=== PATIENT | female | born 1985 | race Caucasian/White ===

== ENCOUNTER 2021-09-29 17:55 | Observation (INO) ==
[2021-09-29] MEDS ORDERED: Isovue-370 500 ML BOTTLE IVP ONE (19:16)
[2021-09-29] MEDS ORDERED: 0.9 % Sodium Chloride 1,000 ML IV ONE ×2 (19:17→23:45)
[2021-09-29] MEDS ORDERED: Ketorolac 30 MG/ML VIAL IVP ONE (19:17)
[2021-09-29 19:41] LABS: Basophils # 0.1 K/mcL (0.0-0.2); Basophils % 0.5 %; Eosinophils # 0.1 K/mcL (0.0-0.6); Eosinophils % 0.3 %; Immature Granulocytes % 0.5 % (0-4); Lymphocytes # 2.7 K/mcL (0.6-4.6); Lymphocytes % 18.9 %; Mean Corpuscular HGB Conc 33.3 g/dL (31.6-35.5); Mean Corpuscular Hemoglobin 27.3 pg (28.0-33.3); Mean Corpuscular Volume 81.9 fL (83.0-100.0); Mean Platelet Volume 11.3 fL (9.4-12.4); Monocytes # 0.6 K/mcL (0.0-1.3); Monocytes % 3.8 %; Platelet Count 273 K/mcL (140-400); Red Blood Count 5.13 M/mcL (3.82-4.97); Red Cell Distribution Width 14.3 % (11.5-14.5); White Blood Count 14.4 K/mcL (4.3-11.1)
[2021-09-29 19:49] LABS: Alanine Aminotransferase 7 Units/L (7-52); Albumin/Globulin Ratio 1.3 (1.1-2.2); Alkaline Phosphatase 100 Units/L (34-104); Amylase 52 Units/L (29-103); Aspartate Amino Transferase 12 Units/L (13-39); BUN/Creatinine Ratio 12 (6-26); Bilirubin,Total 0.3 mg/dL (0.3-1.0); Blood Urea Nitrogen 8 mg/dL (6-20); Calcium 9.1 mg/dL (8.6-10.3); Carbon Dioxide 18 mEq/L (23-29); Chloride 107 mEq/L (98-107); Globulin 3.1 g/dL (2.4-3.5); Glucose 116 mg/dL (70-105); Lipase 22 Units/L (11-82); Osmolality,Calculated 279 (280-300); Potassium 3.6 mEq/L (3.5-5.1); Sodium 135 mEq/L (136-145); Total Protein 7.1 g/dL (6.4-8.9); eGFR For African Americans > 60 (> 60); eGFR For Non-African Americans > 60 (> 60)
[2021-09-29] MEDS ORDERED: Ondansetron 4 MG/2 ML VIAL IVP ONE (20:03)
[2021-09-29] MEDS ORDERED: *HR* FentaNYL (PF) 100 MCG/2 ML VIAL IVP ONE ×4 (20:03→23:13)
[2021-09-29 20:13] LABS: Bacteria,Urine Few per hpf (None-Few); Bilirubin,Urine Negative (Negative); Blood,Urine Negative (Negative); Clarity,Urine Clear (Clear); Color,Urine Colorless (Yellow); Glucose,Urine (UA) Normal (Normal); Ketones,Urine Negative (Negative); Leukocyte Esterase,Urine Small (Negative); Mucus,Urine Few per lpf (None-Few); Nitrite,Urine Negative (Negative); Protein,Urine Negative (Neg-Trace); RBC,Urine 0-3 per hpf (0-3); Specific Gravity,Urine 1.023 (1.010-1.025); Squamous Epithelial Cell,Urine Moderate per hpf (None-Few); Urobilinogen,Urine Normal (Normal); WBC,Urine 0-3 per hpf (0-3)
[2021-09-30] MEDS ORDERED: D5% in Lactated Ringers 1,000 ML IVC SCH ×2 (02:15→02:30)
[2021-09-30] MEDS: Topiramate 100 MG TABLET PO SCH ×2 (03:46→20:34)
[2021-09-30] MEDS: tiZANidine 4 MG TABLET PO SCH ×2 (03:47→20:33)
[2021-09-30] MEDS: *HR* OxyCODONE/APAP 5/325 TABLET PO PRN ×3 (03:47→12:19)
[2021-09-30 06:01] LABS: Basophils # 0.1 K/mcL (0.0-0.2); Basophils % 0.4 %; Eosinophils # 0.2 K/mcL (0.0-0.6); Eosinophils % 0.9 %; Hematocrit 41.2 % (35.3-44.9); Immature Granulocytes % 0.4 % (0-4); Lymphocytes # 6.2 K/mcL (0.6-4.6); Lymphocytes % 36.5 %; Mean Corpuscular HGB Conc 31.6 g/dL (31.6-35.5); Mean Corpuscular Hemoglobin 26.6 pg (28.0-33.3); Mean Corpuscular Volume 84.4 fL (83.0-100.0); Mean Platelet Volume 11.7 fL (9.4-12.4); Monocytes # 1.1 K/mcL (0.0-1.3); Monocytes % 6.5 %; Neutrophils # 9.4 K/mcL (1.6-8.9); Platelet Count 243 K/mcL (140-400); Red Blood Count 4.88 M/mcL (3.82-4.97); Red Cell Distribution Width 14.5 % (11.5-14.5); Segmented Neutrophils % 55.3 %; White Blood Count 17.1 K/mcL (4.3-11.1)
[2021-09-30] MEDS: Ketorolac 30 MG/ML VIAL IVP PRN ×3 (06:09→18:19)
[2021-09-30] MEDS: Ondansetron 4 MG/2 ML VIAL IVP SCH ×4 (06:10→23:23)
[2021-09-30] MEDS: Famotidine 20 MG TABLET PO SCH ×2 (08:26→20:34)
[2021-09-30] MEDS: Gabapentin 300 MG CAPSULE PO SCH ×3 (08:27→20:34)
[2021-09-30] MEDS: methocarbamoL 500 MG TABLET PO SCH ×2 (12:19→20:34)
[2021-09-30] MEDS: levoFLOXacin 500 MG TABLET PO SCH (12:20)
[2021-09-30] MEDS: Doxycycline 100 MG CAPSULE PO SCH ×2 (12:20→20:38)
[2021-09-30] MEDS ORDERED: *HR* OxyCODONE Immed Rel 5 MG TABLET PO PRN ×2 (15:04→15:34)
[2021-09-30] MEDS: Acetaminophen 325 MG TABLET PO SCH ×2 (16:21→23:24)
[2021-09-30] MEDS: *HR* OxyCODONE Immed Rel 5 MG TABLET PO PRN ×2 (16:21→20:33)
[2021-10-01] MEDS: Ketorolac 30 MG/ML VIAL IVP PRN ×3 (00:05→12:43)
[2021-10-01 00:21] LABS: Basophils # 0.1 K/mcL (0.0-0.2); Basophils % 0.6 %; Eosinophils # 0.3 K/mcL (0.0-0.6); Eosinophils % 2.1 %; Hematocrit 39.3 % (35.3-44.9); Hemoglobin 12.3 g/dL (11.5-15.4); Immature Granulocytes % 0.2 % (0-4); Lymphocytes # 5.7 K/mcL (0.6-4.6); Mean Corpuscular HGB Conc 31.3 g/dL (31.6-35.5); Mean Corpuscular Volume 86.4 fL (83.0-100.0); Mean Platelet Volume 11.9 fL (9.4-12.4); Monocytes # 0.8 K/mcL (0.0-1.3); Monocytes % 6.6 %; Neutrophils # 5.7 K/mcL (1.6-8.9); Platelet Count 246 K/mcL (140-400); Red Blood Count 4.55 M/mcL (3.82-4.97); Red Cell Distribution Width 15.1 % (11.5-14.5); Segmented Neutrophils % 45.5 %; White Blood Count 12.6 K/mcL (4.3-11.1)
[2021-10-01] MEDS: Ondansetron 4 MG/2 ML VIAL IVP SCH ×2 (04:06→12:44)
[2021-10-01] MEDS: *HR* OxyCODONE Immed Rel 5 MG TABLET PO PRN ×2 (04:08→07:57)
[2021-10-01 04:13] VITALS: O2SAT 99
[2021-10-01 07:18] VITALS: BP 106/66; PULSE 60; TEMP 98
[2021-10-01] MEDS: Famotidine 20 MG TABLET PO SCH (07:57)
[2021-10-01] MEDS: Acetaminophen 325 MG TABLET PO SCH (07:58)
[2021-10-01] MEDS: methocarbamoL 500 MG TABLET PO SCH (07:58)
[2021-10-01] MEDS: Gabapentin 300 MG CAPSULE PO SCH ×2 (07:58→15:41)
[2021-10-01] MEDS: levoFLOXacin 500 MG TABLET PO SCH (07:58)
[2021-10-01] MEDS: Doxycycline 100 MG CAPSULE PO SCH (09:19)
== END 2021-10-01 16:05 | disposition home or self-care (01) ==
LOC: 1NENUPED 17:55 → EMEROOARM 17:55 → 1NENUPED 09-30 00:15
PROVIDERS: ADMIT Obstetrics & Gynecology; ATTEND Obstetrics & Gynecology